=== PATIENT | male | born 1985 | race Two or more races ===

== ENCOUNTER → 2018-07-05 | Outpatient (CLI) | payer OTHER | LOC: M LRY 12:05 | DX: R05 Cough (principal) | CPT/HCPCS: 71046 ==

== ENCOUNTER → 2020-11-15 | Outpatient (REF) | payer OTHER ==
[2020-11-15 15:28] LABS: SEMEN APPEARANCE OPAQUE (OPAQUE); SEMEN VISCOSITY LIQUID (LIQUID); SEMEN VOLUME 3.3 ml (2.0-5.0); SEMEN pH 8.5 (7.0-8.0); WBC CONCENTRATION <=1 M/ml (<=1 M/ml)
== END ==
LOC: M LAB REF 15:12
PROVIDERS: ATTEND Internal Medicine
DX: Z98.52 Vasectomy status (principal)